=== PATIENT | female | born 1945 | race Caucasian/White ===

== ENCOUNTER → 2018-08-04 | Outpatient (CLI) | payer MEDICARE, OTHER ==
[~2018-08-04] MED LIST: AVELOX400 MG PO; CALCIUM 1,0001 EACH; FISH OIL 1,0001 EAC5; KRILL OIL 1,501 EACH; MEDROLDOSEPACK PO; MULTIVITAMINS1 EAC7; TESSALON200 MG PO
== END ==
LOC: M.RAD 08-02 09:30
DX: Z12.31 Encounter for screening mammogram for malignant neoplasm of breast (principal); M85.89 Other specified disorders of bone density and structure, multiple sites; Z78.0 Asymptomatic menopausal state